=== PATIENT | male | born 1980 | race Caucasian/White ===

== ENCOUNTER 2017-02-12 07:00 | Emergency (ER) | payer OTHER ==
[2017-02-12 07:17] VITALS: BP 145/87; PULSE 72; TEMP 98; BMI 45.8
--- NOTE | 2017-02-12 07:27 | PDOC ---
History of Present Illness - General Chief Complaint: Burn Stated Complaint: LIP BURN History Source: Patient Exam Limitations: No Limitations - History of Present Illness Initial Comments: 02/12/17 07:43 This is a 36 yo M with PMX of GERD and Lap Band surgery, who presets with a lip burn. He tasted hot pasta last night and burned medial aspect of his bottom lip with hot water. He did not burn other areas of mouth. The area of the burn is very small, patient states it was initially slightly edematous but the edema subsided. The burned are formed a thin crust on top, is moderately painful when moving lips, has no surrounding erythema and no drainage. He denies f/c or mouth pain. He denies recent dental infections, dental procedures, frequent infections, immunocompromise, or bleeding d/o. 02/12/17 07:46 Past History - Past Medical History Allergies/Adverse Reactions: Allergies Allergy/AdvReac Type Severity Reaction Status Date / Time No Known Drug Allergies Allergy Verified 02/12/17 07:18 Home Medications: Ambulatory Orders Multivitamin/Iron/Folic Acid [One Daily Multivitamin-Iron Tb] 1 each PO DAILY [place]-3 Fatty Acids [Fish Oil] 300 mg PO DAILY 10/15/14 Omeprazole [Prilosec (RX)] 60 mg PO HS 10/15/14 Garlic [Garlique] 5,000 mcg PO DAILY 05/24/15 Ibuprofen [Motrin -] 400 mg PO TID #21 tablet 06/29/16 Anemia: No Asthma: No Cancer: No Cardiac Disorders: No CVA: No COPD: No CHF: No Dementia: No Diabetes: No GI Disorders: Yes (HEARTBURN) Disorders: No HTN: No Hypercholesterolemia: No Liver Disease: No Seizures: No Thyroid Disease: No - Surgical History Abdominal Surgery: Yes (LAP BAND 2008) Appendectomy: No Cardiac Surgery: No Cholecystectomy: No Lung Surgery: No Neurologic Surgery: No Orthopedic Surgery: No - Immunization History Immunization Up to Date: Yes (flu 2011) - Psycho/Social/Smoking Cessation Hx Anxiety: No Suicidal Ideation: No Smoking Status: No Smoking History: Never smoked Have you smoked in the past 12 months: No Number of Cigarettes Smoked Daily: 0 Information on smoking cessation initiated: No Hx Alcohol Use: No Drug/Substance Use Hx: No Substance Use Type: None Hx Substance Use Treatment: No Review of Systems - Review of Systems Able to Perform ROS?: Yes Comments:: 02/12/17 07:46 Is the patient limited Russian proficient: No Constitutional: No: Chills, Fever HEENTM: Yes: Mouth Pain (bottom lip ). No: Dental Problems, Difficulty Swallowing, Mouth Swelling Respiratory: No: Cough, Shortness of Breath Cardiac (ROS): No: Chest Pain, Lightheadedness ABD/GI: No: Difficulty Swallowing, Nausea, Vomiting : No: Dysuria Musculoskeletal: No: Neck Pain Integumentary: No: Bruising, Lumps, Rash Neurological: No: Headache, Numbness, Paresthesia, Weakness Psychiatric: No: Anxiety, Depression Endocrine: No: Excessive Sweating, Flushing, Change in Weight Hematologic/Lymphatic: No: Anemia, Blood Clots, Easy Bleeding, Easy Bruising All Other Systems: Reviewed and Negative *Physical Exam - Vital Signs Last Vital Signs Temp Pulse Resp BP Pulse Ox 98 F 72 18 145/87 99 02/12/17 07:14 02/12/17 07:14 02/12/17 07:14 02/12/17 07:14 02/12/17 07:14 - Physical Exam General Appearance: Yes: Appropriately Dressed. No: Apparent Distress HEENT: positive: EOMI, HATTIE, Normal Voice, Symmetrical, Lesions (small .5 cm x .5 cm burned are on medial aspect of bottom lip. nonedematous, nonerythematous, small crust on top of lestion, no exudate. first degree ). negative: Pale Conjunctivae, Scleral Icterus (R), Scleral Icterus (L) Neck: positive: Trachea midline, Normal Thyroid, Supple. negative: Tender Respiratory/Chest: positive: Lungs Clear, Normal Breath Sounds Cardiovascular: positive: Regular Rhythm, Regular Rate, S1, S2. negative: JVD Gastrointestinal/Abdominal: positive: Normal Bowel Sounds, Soft. 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 It does not appear infected and does not require PO abx. Patient advised to use topical bacitracin, neosporin or petroleum jelly. 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 Topical Bacitracin ordered for patient. 02/12/17 07:55 *DC/Admit/Observation/Transfer Diagnosis at time of Disposition: First degree burn injury - Discharge Dispostion Disposition: HOME Admit: No - Referrals Referrals: Max Patterson MD [Primary Care Provider] - - Patient Instructions Printed Discharge Instructions: How to Take Care of a Burn Additional Instructions: You have suffered a small first degree burn on your bottom lip. It is not infected and appears to be healing. Apply topical bacitracin once or twice daily to affected area. avoid hot liquids or foods on the area. If are becomes swollen, red, more painful or starts oozing puss, please return to hospital. You are safe to return to work today - Post Discharge Activity Work/School Note: Back to Work
[2017-02-12] MEDS ORDERED: DIPHTH,PERTUSS(ACELL),TET 0.5 ML DISP.SYRIN IM ONE (08:16)
--- NOTE | 2017-02-12 08:16 | PDOC ---
Attending Attestation - Resident Resident Name: Jeannine Ovalle - ED Attending Attestation I have performed the following: I have examined & evaluated the patient, The case was reviewed & discussed with the resident, I agree w/resident's findings & plan, Exceptions are as noted - HPI HPI: 02/12/17 08:10 36y/o healthy male presents with isolated small scald burn with boiling water to his lower lip last night. no airway issues, applied neosporin and presents for evaluation. - Physicial Exam PE: 02/12/17 08:14 VSS airway patent, voice clear isolated dry superficial, round, 5mm scald burn to R lower lip, no drainage or erythema/swelling. no intact blister. sensation intact. - Medical Decision Making 02/12/17 08:15 Patient seen and evaluated with the resident. I agree with the overall evaluation, assessment, and management with the following summary of visit: 36-year-old male presents with isolated, small, superficial scald burn to right lower lip. No airway issues. Reassured Check tetanus status Bacitracin twice daily, understands return criteria
[2017-02-12] MEDS ORDERED: NEOMYCIN/POLYMYXIN/BACITRACIN (TRIPLE ANTIBIOTIC) 28 GM OINTMENT TP SCH (10:00)
== END 2017-02-12 08:15 | disposition home or self-care (01) ==
LOC: JER 07:00
DX: T20.12XA Burn of first degree of lip(s), initial encounter (principal); X12.XXXA Contact with other hot fluids, initial encounter; Y93.G1 Activity, food preparation and clean up; Y92.018 Other place in single-family (private) house as the place of occurrence of the external cause
CPT/HCPCS: 90715; 99281-25

== ENCOUNTER 2017-04-10 08:15 | Day surgery (SDC) | payer OTHER ==
[2017-04-08 13:59] VITALS: BMI 44.3
[2017-04-10] MEDS ORDERED: PROPOFOL 20 ML ONE (09:25)
[2017-04-10] MEDS ORDERED: LIDOCAINE HCL/PF 2% SDV 5ML VIAL ONE (09:25)
[2017-04-10] MEDS ORDERED: RANITIDINE HCL 50 MG/2 ML VIAL ONE ×2 (09:40→09:44)
[2017-04-10] MEDS ORDERED: ONDANSETRON 4 MG/2 ML VIAL ONE ×2 (09:40→09:43)
[2017-04-10] MEDS ORDERED: MIDAZOLAM HCL 2 MG/2 ML SINGLE DOSE VIAL ONE (09:56)
[2017-04-10 10:24] VITALS: TEMP 97.9
[2017-04-10 10:58] VITALS: PULSE 58
[2017-04-10 11:17] VITALS: BP 146/88
== END 2017-04-10 11:17 | disposition home or self-care (01) ==
LOC: JASU-ENDO 08:15
PROVIDERS: ATTEND Internal Medicine Gastroenterology
PROC: 0DB68ZX Excision of Stomach, Via Natural or Artificial Opening Endoscopic, Diagnostic (ICD-10-PCS; 2017-04-10)
PROC: 0DB48ZX Excision of Esophagogastric Junction, Via Natural or Artificial Opening Endoscopic, Diagnostic (ICD-10-PCS; 2017-04-10)
PROC: 0DB98ZX Excision of Duodenum, Via Natural or Artificial Opening Endoscopic, Diagnostic (ICD-10-PCS; principal; 2017-04-10 10:00)
DX: K21.9 Gastro-esophageal reflux disease without esophagitis (principal); K44.9 Diaphragmatic hernia without obstruction or gangrene; Z98.84 Bariatric surgery status
CPT/HCPCS: 74220-TC; 74240-TC

== ENCOUNTER 2017-04-18 05:08 | Day surgery (SDC) | payer OTHER ==
--- NOTE | 2017-04-11 16:28 | PATH ---
Surgical Pathology Report Patient Name: JAKE RONQUILLO [facility]. Rec. #: [id number] /Age/Gender: 1980 (Age: 37) / M Account: [id number] Location: AMBULATORY SURG Taken: 04/10/2017 Received: 04/10/2017 Reported: 04/11/2017 Physicians: Curtis Anders M.D. Specimen(s) Received A: BX ANTRUM B: BX GE JUNCTION Clinical History Pre-gastric sleeve Sliding hiatal hernia, reflux, gastric band, bariatric surgery Final Diagnosis A. STOMACH, ANTRUM, BIOPSY: GASTRIC OXYNTIC MUCOSA WITH MILD TO MODERATE CHRONIC GASTRITIS. IMMUNOSTAIN FOR H. PYLORI IS NEGATIVE FOR ORGANISMS. SEPARATE FRAGMENT OF SQUAMOUS EPITHELIUM WITH REFLUX TYPE CHANGES. B. GE JUNCTION, BIOPSY: SQUAMOCOLUMNAR JUNCTIONAL MUCOSA WITHCHRONIC INFLAMMATION AND REFLUX TYPE CHANGES. NO INTESTINAL METAPLASIA (FLYNN'S ESOPHAGUS) IDENTIFIED. Electronically Signed Sean Prater M.D. Gross Description A. Received in formalin, labeled "biopsy antrum" are 3 longoria, irregular portions of soft tissue ranging from 0.2-0.4 cm in greatest dimension. The specimens are submitted in toto in one cassette. B. Received in formalin, labeled "biopsy GE junction" are 3 longoria, irregular portions of soft tissue ranging from 0.2-0.4 cm in greatest dimension. The specimens are submitted in toto in one cassette. 04/10/201704/10/2017
[2017-04-16 09:22] VITALS: BMI 44.6
[2017-04-18] MEDS ORDERED: MIDAZOLAM HCL 2 MG/2 ML SINGLE DOSE VIAL ONE (07:59)
[2017-04-18] MEDS ORDERED: BUPIVACAINE HCL/PF 0.5% (5MG/ML) 10 ML VIAL ONE (08:00)
[2017-04-18] MEDS ORDERED: PROPOFOL 20 ML ONE ×2 (08:07→10:20)
[2017-04-18] MEDS ORDERED: LIDOCAINE HCL/PF 2% SDV 5ML VIAL ONE (08:07)
[2017-04-18] MEDS ORDERED: DEXAMETHASONE SOD PHOSPHATE 4 MG/1 ML VIAL ONE ×2 (08:07→10:32)
[2017-04-18] MEDS ORDERED: ROCURONIUM BROMIDE 50 MG/5 ML VIAL ONE ×2 (08:08)
[2017-04-18] MEDS ORDERED: ceFAZolin SODIUM 1 GM VIAL ONE (08:29)
[2017-04-18] MEDS ORDERED: ceFAZolin SODIUM 1 GM VIAL IVPB ONE (08:30)
[2017-04-18] MEDS ORDERED: BUPIVACAINE HCL/PF (5 MG/ML) 30 ML VIAL IJ ONE (10:30)
--- NOTE | 2017-04-18 10:50 | HP ---
Satellite [facility] - Chief Complaint Chief Complaint: Dysphagia, nausea, epigastric pain, slipped band History Source: Patient Limitations to Obtaining History: No Limitations - Past Medical History Allergies/Adverse Reactions: Allergies Allergy/AdvReac Type Severity Reaction Status Date / Time No Known Drug Allergies Allergy Verified 04/18/17 07:13 Gastrointestinal: Yes: Other (Morbid obesity) - Current Medications Current Medications: Home Medications Medication Instructions Recorded Multivitamin/Iron/Folic Acid [One 1 each PO DAILY 10/15/14 Daily Multivitamin-Iron Tb] [place]-3 Fatty Acids [Fish Oil] 300 mg PO DAILY 10/15/14 Omeprazole [Prilosec (RX)] 60 mg PO HS 10/15/14 Garlic [Garlique] 5,000 mcg PO DAILY 05/24/15 Albuterol Sulfate [Proventil HFA 1 inh PO PRN PRN 04/08/17 Inhaler -] Ibuprofen [Motrin -] 400 mg PO PRN PRN 04/10/17 Mag Carb/Al Hydrox/Alginic AC 15 - 30 ml PO Q6H PRN #355 oz 04/10/17 [Gaviscon Liquid] Satellite Physical Exam - Physical Examination Vital Signs: Vital Signs Period Temp Pulse Resp BP Sys/Barker Pulse Ox Last 24 Hr 98.0 F 66 20 142/80 99 General Appearance: Well Nourished Lung: Clear to auscultation Heart: Regular rate & rhythm Abdomen: Soft, No tenderness Neurological: Alert, Oriented Satellite Impression/Plan - Impression/Plan Impression: Dysphagia, nausea, vomiting, slipped band Operative Procedure: Robotic removal of gastric band, port and components, EGD Date to be Performed: 04/18/17
--- NOTE | 2017-04-18 10:52 | OP ---
Operative Note - Note: Operative Date: 04/18/17 Pre-Operative Diagnosis: Nausea, vomiting, dysphagia, slipped band Operation: Robotic removal of gastric band, port and components, capsulotomy, upper endoscopy Findings: No leak or obstruction on EGD Post-Operative Diagnosis: Same as Pre-op Surgeon: Zachery Hassan Distribution Lead: Manny Li Anesthesia: General Specimens Removed: Gastric band, port and components Estimated Blood Loss (mls): 30 Operative Report Dictated: Yes
[2017-04-18] MEDS ORDERED: ONDANSETRON 4 MG/2 ML VIAL IVPB PRN (10:54)
[2017-04-18] MEDS ORDERED: HYDROmorphone HCL CARPU-JECT 1 MG/1 ML DISP.SYRIN IVPB PRN (10:54)
[2017-04-18] MEDS ORDERED: SODIUM CHLORIDE 1,000 ML IV SCH (11:00)
[2017-04-18] MEDS ORDERED: PROMETHAZINE HCL 25 MG/1 ML VIAL IVPUSH PRN (11:12)
[2017-04-18] MEDS ORDERED: oxyCODONE HCL 5 MG TABLET PO PRN (11:12)
[2017-04-18] MEDS ORDERED: LACTATED RINGERS SOLUTION 1,000 ML IV SCH (11:15)
[2017-04-18] MEDS ORDERED: FAMOTIDINE 20 MG/50 ML IVPB 50 ML IVPB ONE (11:47)
[2017-04-18 11:58] LABS: MCH 23.7 pg (25.7-33.7); MCHC 31.7 g/dl (32.0-35.9); MEAN CELL VOLUME 74.6 fl (80-96); PLATELET COUNT 236 K/MM3 (134-434); RDW 15.7 % (11.9-15.9); WHITE BLOOD COUNT 9.9 K/mm3 (4.0-10.0)
[2017-04-18] MEDS ORDERED: FAMOTIDINE 20 MG PREMIXED IVPB IVPB ONE (11:59)
--- NOTE | 2017-04-18 12:11 | OP ---
DATE OF OPERATION: 04/18/2017 SURGEON: Zachery Hassan MD GLOVE SEWER: Manny Li MD PREOPERATIVE DIAGNOSES: Dysphagia, nausea, vomiting, epigastric pain, and slipped band. POSTOPERATIVE DIAGNOSES: Dysphagia, nausea, vomiting, epigastric pain, and slipped band. PROCEDURE: Robotic removal of gastric band, port, and components; robotic capsulotomy; and upper endoscopy. SPECIMEN: Gastric band, port, and components. ESTIMATED BLOOD LOSS: 30 mL DRAINS: None. ANESTHESIA: GET. REASON FOR PROCEDURE: This is a 37-year-old gentleman who presented to the office. He had had a gastric band placed approximately 9 years ago. He had dysphagia, nausea, vomiting, and epigastric pain associated with it and recent endoscopy demonstrating slippage of the band and narrow lumen causing dysphagia. Because of this, he was consented for a robotic, possible open removal of gastric band, port, and components and upper endoscopy. The risks and benefits of the procedure were explained. These included bleeding, infection, hernia, PA, DVT, PE, injury to surrounding structures including injury to the esophagus, stomach, colon, liver, spleen, bowel, vessel injury, nerve injury, persistent dysphagia, leak, obstruction, weight regain, and as some of the complications. He understood and signed informed consent. DESCRIPTION OF PROCEDURE: Patient was placed supine on the operating room table. He underwent general endotracheal intubation. A foot board was placed, and the legs were secured. The arms were brought out at 90 degrees and secured with Kerlix dressing. The abdomen was prepped and draped in the usual sterile fashion. A timeout was performed. An incision was made superior and to the left of the umbilicus. A Veress needle was inserted, and there was difficulty attaining pneumoperitoneum. Therefore, an incision was made superior and to the right of the umbilicus. Veress needle was inserted. Pneumoperitoneum established. The Veress needle was removed, and an 8-mm robotic optical trocar was placed under direct visualization with the laparoscope. The previous placement of the Veress needle was inspected. No injury was noted to any surrounding structures. An 8-mm robotic trocar was then placed in this site. An 8-mm robotic trocar was placed in the left subcostal and right subcostal areas. A stab wound was made in the subxiphoid area, and a Ren liver retractor inserted. The post was secured at the bedside. Patient was placed in steep reverse Trendelenburg, and the liver was retracted towards the anterior abdominal wall. This was secured to the post. The robot was brought in over the field and docked. The instruments were inserted. Dissection was performed at the console robotically. Immediately it was noted there was dense adhesive scar tissue near the level of the previously placed band. Very carefully, using the tubing as a guide, the overlying scar tissue was dissected using hook electrocautery. This was performed until the entirety of the band was circumferentially dissected. Once this was performed, the band was removed from its position around the stomach in its entirety. The previous wrap that was placed at the time of the band was also taken down as well. No injury to stomach or surrounding structures was noted at the time. A capsulotomy was then performed robotically as well, being careful to stay superficial to the gastric wall. The capsule was incised, performing a capsulotomy, freeing the stomach and allowing it to release some of its tension from the scar tissue. Again, no injury was noted. Copious irrigation and suction was performed until clear, and again, no evidence of injury was noted. At this time, an upper endoscopy was performed. Irrigation solution was placed around the area of dissection, and all instruments were removed from the patient 's mouth. I performed an upper endoscopy, starting from the level of the esophagus. No injury to the esophagus was noted. The GE junction was identified. The entirety of the stomach and gastric lumen was identified, and no injuries seen. There was no evidence of leak or obstruction on endoscopy or on laparoscopic imaging. At this point, the stomach was suctioned via the endoscope and was removed from the patient. The area of dissection was again inspected, and again, no injury noted. At this point, the tubing of the band was transected, and the band along with its tubing was removed from the abdominal cavity. The liver retractor was then removed under direct visualization. The patient was then placed supine after the instruments were removed from the robot and the robot was undocked from the field. The port was then dissected down to the level of the fascia and completely freed. This was removed, and the tubing of the band was noted to fully match. Hemostasis of all incisions was noted. Next, 3-0 Vicryl was used to close the deep and subcutaneous tissue at the level of the trocar that was superior to the right of the umbilicus where the port was removed, and 4-0 Biosyn was used to close all skin incisions. Sterile dressings were applied. The patient tolerated the procedure well, was transferred to recovery room in stable condition. Wendy [id number] MTDD
[2017-04-18 12:22] LABS: ANION GAP 5 (8-16); CALCIUM 8.3 mg/dL (8.5-10.1); CO2 26 mmol/L (21-32); CREATININE 0.9 mg/dL (0.7-1.3); GLUCOSE,RANDOM 127 mg/dL (74-106)
[2017-04-18 12:23] VITALS: TEMP 98
[2017-04-18] MEDS ORDERED: ONDANSETRON 4 MG/2 ML VIAL ONE (12:33)
[2017-04-18] MEDS ORDERED: ENOXAPARIN NA (PORCINE) 40 MG/0.4 ML DISP.SYRIN SQ ONE (15:00)
[2017-04-18] MEDS ORDERED: oxyCODONE HCL 5 MG TABLET ONE (16:52)
[2017-04-18 18:08] VITALS: BP 145/84; PULSE 85
[2017-04-18] MEDS ORDERED: FAMOTIDINE 20 MG/50 ML IVPB 50 ML IVPB SCH (22:00)
--- NOTE | 2017-04-19 17:14 | PATH ---
Surgical Pathology Report Patient Name: JAKE RONQUILLO Med. Rec. #: [id number] /Age/Gender: 1980 (Age: 37) / M Account: [id number] Location: AMBULATORY SURG Taken: 04/18/2017 Received: 04/18/2017 Reported: 04/19/2017 Physicians: Zachery Hassan M.D. 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 Gross Description Received fresh labeled "gastric band, port and components," is a 4.3 cm in diameter focally disrupted gastric band. Also received within the same container is a 3 cm in diameter x 1.5 cm in depth longoria, circular device, consistent with a port. The port displays a 38 cm in length portion of tubing extending from one aspect. There are 2 additional clear portions of tubing received within the same container measuring 2.1 and 12.0 cm in length. No soft tissue is present. No sections are submitted, gross only. DL/04/18/2017 saudi04/18/2017
== END 2017-04-18 18:08 | disposition home or self-care (01) ==
LOC: JASUSAT 05:08
PROVIDERS: ATTEND Surgery
PROC: 0DN64ZZ Release Stomach, Percutaneous Endoscopic Approach (ICD-10-PCS; 2017-04-18)
PROC: 0DJ08ZZ Inspection of Upper Intestinal Tract, Via Natural or Artificial Opening Endoscopic (ICD-10-PCS; 2017-04-18)
PROC: 0DP64CZ Removal of Extraluminal Device from Stomach, Percutaneous Endoscopic Approach (ICD-10-PCS; principal; 2017-04-18 08:00)
PROC: 8E0W4CZ Robotic Assisted Procedure of Trunk Region, Percutaneous Endoscopic Approach (ICD-10-PCS; 2017-04-18 08:00)
DX: K95.09 Other complications of gastric band procedure (principal); R13.10 Dysphagia, unspecified; R11.2 Nausea with vomiting, unspecified; R10.13 Epigastric pain
CPT/HCPCS: 43235; 43659; 43774; S2900; 36415; 74241-TC; 80048; 85027; 86850; 86900; 86901; 88300-TC; 88305-TC; 88342-TC; 94010; 94760

== ENCOUNTER 2017-07-09 06:10 | Inpatient (IN) | payer OTHER ==
[2017-07-02 12:17] VITALS: BMI 47.4
[2017-07-09] MEDS ORDERED: CITRIC ACID/SODIUM CITRATE 30 ML UNIT-DOSE CUP ONE (07:44)
[2017-07-09] MEDS ORDERED: LIDOCAINE HCL/PF 2% SDV 5ML VIAL ONE (07:57)
[2017-07-09] MEDS ORDERED: MIDAZOLAM HCL 2 MG/2 ML SINGLE DOSE VIAL ONE ×2 (07:58)
[2017-07-09] MEDS ORDERED: SUCCINYLCHOLINE CHLORIDE 200 MG/10 ML VIAL ONE (07:58)
[2017-07-09] MEDS ORDERED: PROPOFOL 20 ML ONE ×4 (07:58→11:00)
[2017-07-09] MEDS ORDERED: ROCURONIUM BROMIDE 50 MG/5 ML VIAL ONE ×2 (07:58→08:59)
[2017-07-09] MEDS ORDERED: SCOPOLAMINE HYDROBROMIDE 1 PATCH PATCH.TD72 ONE (08:14)
--- NOTE | 2017-07-09 08:15 | HP ---
History & Physical Update - History History: No Change - Physical Physical: No Change - Assessment Assessment: No Change - Plan Plan: No Change (Here today for elective sleeve gastrectomy)
[2017-07-09] MEDS ORDERED: ceFAZolin SODIUM 1 GM VIAL ONE (08:46)
[2017-07-09] MEDS ORDERED: DEXAMETHASONE SOD PHOSPHATE 4 MG/1 ML VIAL ONE (08:46)
[2017-07-09] MEDS ORDERED: ceFAZolin SODIUM 1 GM VIAL IVPB ONE (08:58)
[2017-07-09] MEDS ORDERED: GLYCOPYRROLATE 0.2 MG/1 ML VIAL ONE (11:21)
[2017-07-09] MEDS ORDERED: NEOSTIGMINE METHYLSULFATE 0.5 MG/ML - 10 ML MDV ONE (11:21)
[2017-07-09] MEDS ORDERED: BUPIVACAINE HCL/PF 0.5% (5MG/ML) 10 ML VIAL IJ ONE (11:24)
[2017-07-09] MEDS ORDERED: POVIDONE-IODINE OINTMENT 10% - 28.4 GM TUBE ONE (11:34)
[2017-07-09] MEDS ORDERED: POVIDONE-IODINE OINTMENT 10% - 28.4 GM TUBE TP ONE (11:34)
--- NOTE | 2017-07-09 11:35 | HP ---
Admitting History and Physical - Admission History of Present Illness: 37 male with Morbid obesity History Source: Patient Limitations to Obtaining History: No Limitations - Past Medical History Gastrointestinal: Yes: Other (Morbid obesity) - Smoking History Smoking history: Never smoked Have you smoked in the past 12 months: No Aproximately how many cigarettes per day: 0 - Alcohol/Substance Use Hx Alcohol Use: Yes (SOCIAL) Home Medications - Allergies Allergies/Adverse Reactions: Allergies Allergy/AdvReac Type Severity Reaction Status Date / Time No Known Drug Allergies Allergy Verified 07/02/17 12:18 - Home Medications Home Medications: Ambulatory Orders RX: Multivitamin/Iron/Folic Acid [One Daily Multivitamin-Iron Tb] 1 each PO DAILY 10/15/14 RX: [place]-3 Fatty Acids [Fish Oil] 300 mg PO DAILY 10/15/14 RX: Omeprazole [Prilosec (RX)] 60 mg PO HS 10/15/14 RX: Garlic [Garlique] 5,000 mcg PO DAILY 05/24/15 RX: Albuterol Sulfate [Proventil HFA Inhaler -] 1 inh PO PRN PRN 04/08/17 Mag Carb/Al Hydrox/Alginic AC [Gaviscon Liquid] 15 - 30 ml PO Q6H PRN #355 oz RX: Ibuprofen [Motrin -] 400 mg PO PRN PRN 04/10/17 Docusate Sodium [Colace -] 100 mg PO TID #90 capsule 04/18/17 Famotidine [Pepcid] 20 mg PO BID #60 tablet 04/18/17 Famotidine [Pepcid] 20 mg PO BID #60 tablet MDD 2 07/09/17 Fexofenadine/Pseudoephedrine [Olya-D 12 Hour Tablet] 1 each PO PRN PRN Oxycodone HCl/Acetaminophen [Percocet 5-325 mg Tablet] 1 tab PO Q4H PRN #28 tablet MDD 6 07/09/17 Family Disease History - Family Disease History Family History: Unremarkable Review of Systems - Review of Systems Constitutional: denies: Chills, Fever HENT: reports: No Symptoms Neck: reports: No Symptoms Cardiovascular: denies: Chest Pain Respiratory: denies: Cough Gastrointestinal: denies: Abdominal Pain Genitourinary: reports: No Symptoms Neurological: denies: Change in LOC Pain Intensity: 0 Physical Examination Vital Signs: Vital Signs Temperature 97.7 F 07/09/17 06:43 Pulse Rate 74 07/09/17 06:43 Respiratory Rate 20 07/09/17 06:43 Blood Pressure 136/79 07/09/17 06:43 O2 Sat by Pulse Oximetry (%) 100 07/09/17 06:42 Constitutional: Yes: Calm HENT: Yes: WNL Neck: Yes: Supple Cardiovascular: Yes: Regular Rate and Rhythm Respiratory: Yes: CTA Bilaterally Gastrointestinal: Yes: Soft, Abdomen, Obese Extremities: Yes: WNL Neurological: Yes: Alert, Oriented Problem List - Problems (1) Morbid (severe) obesity due to excess calories Code(s): E66.01 - MORBID (SEVERE) OBESITY DUE TO EXCESS CALORIES Assessment/Plan 37 male with morbid obesity For robotic vertical sleeve gastrectomy Risks and benefits explained Understands and agrees
[2017-07-09] MEDS ORDERED: HYDROmorphone HCL CARPU-JECT 1 MG/1 ML DISP.SYRIN IVPB PRN (11:37)
--- NOTE | 2017-07-09 11:37 | OP ---
Operative Note - Note: Operative Date: 07/09/17 Pre-Operative Diagnosis: Morbid obesity Operation: Robotic vertical sleeve gastrectomy, lysis of adhesions, upper endoscopy/EGD Findings: No leak/obstruction Post-Operative Diagnosis: Other (Morbid obesity, abdominal adhesions) Surgeon: Zachery Hassan Medical Record Retrieval Specialist: Kyle Whitfield Anesthesia: General Specimens Removed: Greater curvature of stomach Estimated Blood Loss (mls): 30 Drains & Tubes with Location: 36 Fr Operative Report Dictated: Yes
[2017-07-09] MEDS ORDERED: ALBUTEROL SO4 18 GM HFA INHALER IH PRN ×2 (11:39→14:16)
[2017-07-09] MEDS ORDERED: SODIUM CHLORIDE 1,000 ML IV SCH ×2 (11:45→14:16)
[2017-07-09] MEDS ORDERED: METOCLOPRAMIDE HCL INJECTION 10 MG/2 ML VIAL IVPUSH SCH (11:45)
[2017-07-09] MEDS ORDERED: ONDANSETRON 4 MG/2 ML VIAL IVPUSH SCH (11:45)
[2017-07-09] MEDS ORDERED: ONDANSETRON 4 MG/2 ML VIAL IVPUSH PRN (11:55)
--- NOTE | 2017-07-09 11:56 | SURG ---
Surgery Gum Mixer Note Gum Mixer: Kyle Whitfield PA-C Date of Service: 07/09/17 Diagnosis: Morbid obesity Procedure: Robotic sleeve gastrectomy, lysis of adhesions I was present for the entirety of the operative procedure. For further detail, please refer to operative report. Visit type - Case Type Case Type: Scheduled Admission - New patient This patient is new to me today: Yes Date on this admission: 07/09/17
[2017-07-09] MEDS ORDERED: ACETAMINOPHEN 1000 MG/100 ML VIAL (NON FORMULARY) IVPB SCH (12:00)
[2017-07-09] MEDS ORDERED: ACETAMINOPHEN INJECTION 100 ML IVPB ONE (12:00)
[2017-07-09] MEDS ORDERED: METOCLOPRAMIDE HCL INJECTION 10 MG/2 ML VIAL ONE (12:08)
[2017-07-09 12:23] LABS: MCH 22.8 pg (25.7-33.7); MCHC 31.6 g/dl (32.0-35.9); MEAN PLT VOLUME 7.7 fl (7.5-11.1); PLATELET COUNT 277 K/MM3 (134-434); RDW 16.3 % (11.9-15.9); WHITE BLOOD COUNT 12.4 K/mm3 (4.0-10.0)
[2017-07-09 12:53] LABS: ALBUMIN 3.9 g/dl (3.4-5.0); ALK PHOS 50 U/L (45-117); ANION GAP 8 (8-16); BILIRUBIN,TOTAL 0.3 mg/dL (0.2-1.0); CO2 25 mmol/L (21-32); CREATININE 0.9 mg/dL (0.7-1.3); GLUCOSE,RANDOM 144 mg/dL (74-106); SGOT/AST 42 U/L (15-37); SGPT/ALT 68 U/L (12-78); TOT PROT 7.1 g/dl (6.4-8.2)
[2017-07-09] MEDS: HYDROmorphone HCL CARPU-JECT 1 MG/1 ML DISP.SYRIN IVPUSH PRN ×6 (12:56→14:10)
[2017-07-09] MEDS ORDERED: HYDROmorphone HCL CARPU-JECT 2 MG/1 ML DISP.SYRIN ONE ×2 (12:58→14:06)
[2017-07-09] MEDS ORDERED: HYDROmorphone HCL CARPU-JECT 1 MG/1 ML DISP.SYRIN IVPUSH PRN (14:25)
[2017-07-09] MEDS: HYDROmorphone HCL CARPU-JECT 1 MG/1 ML DISP.SYRIN IVPB PRN ×2 (17:30→22:09)
[2017-07-09] MEDS: METOCLOPRAMIDE HCL INJECTION 10 MG/2 ML VIAL IVPUSH SCH ×2 (17:40→23:29)
[2017-07-09] MEDS: LACTATED RINGERS SOLUTION 1,000 ML IV SCH (18:20)
[2017-07-09] MEDS: ONDANSETRON 4 MG/2 ML VIAL IVPUSH SCH ×3 (18:59→23:29)
[2017-07-09] MEDS: ACETAMINOPHEN 1000 MG/100 ML VIAL (NON FORMULARY) IVPB SCH ×3 (19:11→23:28)
[2017-07-09] MEDS ORDERED: FAMOTIDINE 20 MG/50 ML IVPB 50 ML IVPB SCH (22:00)
[2017-07-09] MEDS ORDERED: ENOXAPARIN NA (PORCINE) 40 MG/0.4 ML DISP.SYRIN SQ SCH (22:00)
[2017-07-09] MEDS: ENOXAPARIN NA (PORCINE) 40 MG/0.4 ML DISP.SYRIN SQ SCH (22:11)
[2017-07-09] MEDS: FAMOTIDINE 20 MG/50 ML IVPB 50 ML IVPB SCH (22:11)
[2017-07-10] MEDS: HYDROmorphone HCL CARPU-JECT 1 MG/1 ML DISP.SYRIN IVPB PRN (02:49)
[2017-07-10] MEDS: ONDANSETRON 4 MG/2 ML VIAL IVPUSH SCH ×4 (03:45→16:25)
[2017-07-10] MEDS: METOCLOPRAMIDE HCL INJECTION 10 MG/2 ML VIAL IVPUSH SCH ×2 (05:15→12:18)
[2017-07-10] MEDS: ACETAMINOPHEN 1000 MG/100 ML VIAL (NON FORMULARY) IVPB SCH (05:15)
[2017-07-10 06:09] LABS: MCH 23.6 pg (25.7-33.7); MCHC 32.9 g/dl (32.0-35.9); MEAN CELL VOLUME 71.9 fl (80-96); MEAN PLT VOLUME 8.1 fl (7.5-11.1); PLATELET COUNT 232 K/MM3 (134-434); RDW 16.2 % (11.9-15.9)
[2017-07-10 06:47] LABS: ALBUMIN 2.9 g/dl (3.4-5.0); ALK PHOS 39 U/L (45-117); ANION GAP 6 (8-16); BILIRUBIN,TOTAL 0.5 mg/dL (0.2-1.0); CALCIUM 7.4 mg/dL (8.5-10.1); CO2 26 mmol/L (21-32); CREATININE 0.7 mg/dL (0.7-1.3); GLUCOSE,RANDOM 96 mg/dL (74-106); SGOT/AST 33 U/L (15-37); SGPT/ALT 57 U/L (12-78); TOT PROT 5.7 g/dl (6.4-8.2)
--- NOTE | 2017-07-10 07:38 | PN ---
Addendum entered and electronically signed by Kyle Whitfield PA 07/10/17 12:58: UGI (unofficial read): no extravasation Bariatric ST1 diet ordered Original Note: Progress Note (short form) - Note Progress Note: POD #1 Alert. No acute events since surgery per RN notes. Patient has ambulated hallways without difficulty. Voiding spontaneously. Remains NPO. Denies n/v/f/c , CP, palpitations or SOB. Last Vital Signs Temp Pulse Resp BP Pulse Ox 99.4 F 108 H 20 139/93 94 L 07/10/17 07:08 07/10/17 07:08 07/10/17 07:08 07/10/17 07:08 07/10/17 00:00 SUSAN ENGLAND 07/10/17 05:50 07/10/17 06:10 Gen: nad Lungs: cta bilat anteriorly Cor: rrr Abd: all surgical ports c/d/i. No hematoma LE: TEDs bilat. No tenderness bilat <Kyle Whitfield - Last Filed: 07/10/17 07:33> - Note Progress Note: POD 1 No pain No nausea Vital Signs Period Temp Pulse Resp BP Sys/Barker Pulse Ox Last 24 Hr 98.4 F-99.4 F 80-108 16-22 134-170/65-97 94-99 Abd soft, dressings intact SUSAN ENGLAND 07/10/17 05:50 07/10/17 06:10 UGI- no leak/obstruction OOB Clears Discharge planning <Zachery Hassan - Last Filed: 07/10/17 13:40> Problem List - Problems (1) Morbid (severe) obesity due to excess calories Assessment/Plan: POD #1 s/p Robotic sleeve gastrectomy f/u UGI --> if negative leak, start bariatric stage 1 diet Cont oob and ambulate GI ppx dc planning Code(s): E66.01 - MORBID (SEVERE) OBESITY DUE TO EXCESS CALORIES <Kyle Whitfield - Last Filed: 07/10/17 07:33> - Problems (1) Morbid (severe) obesity due to excess calories Code(s): E66.01 - MORBID (SEVERE) OBESITY DUE TO EXCESS CALORIES <Zachery Hassan - Last Filed: 07/10/17 13:40>
[2017-07-10] MEDS ORDERED: PT OWN MED DRAWER 7, Y5N ONE (08:49)
[2017-07-10] MEDS: HYDROmorphone HCL CARPU-JECT 1 MG/1 ML DISP.SYRIN IVPUSH PRN ×2 (08:53→12:17)
[2017-07-10] MEDS: ENOXAPARIN NA (PORCINE) 40 MG/0.4 ML DISP.SYRIN SQ SCH (09:00)
[2017-07-10] MEDS: FAMOTIDINE 20 MG/50 ML IVPB 50 ML IVPB SCH (09:01)
[2017-07-10] MEDS: LACTATED RINGERS SOLUTION 1,000 ML IV SCH (12:44)
[2017-07-10] MEDS ORDERED: oxyCODONE HCL 5 MG TABLET PO PRN (13:09)
[2017-07-10] MEDS ORDERED: ACETAMINOPHEN 325 MG TABLET (FP) PO PRN (13:09)
[2017-07-10] MEDS ORDERED: SODIUM CHLORIDE 1,000 ML IV SCH (13:15)
--- NOTE | 2017-07-10 13:24 | PN ---
Progress Note, Physician Chief Complaint: s/p lap robotic gastric sleeve History of Present Illness: post op day one, general anesthesia - Current Medication List Current Medications: Active Medications Acetaminophen (Tylenol -) 325 mg PO Q4H PRN PRN Reason: FEVER OR PAIN Albuterol Sulfate (Ventolin Hfa Inhaler -) 1 puff IH PRN PRN PRN Reason: SHORT OF BREATH/WHEEZING Enoxaparin Sodium (Lovenox -) 40 mg SQ BID [facility] Last Admin: 07/10/17 09:00 Dose: 40 mg Hydromorphone HCl (Dilaudid Injection -) 0.5 mg IVPUSH [id number] PRN PRN Reason: PAIN Stop: 07/12/17 11:56 Last Admin: 07/10/17 12:17 Dose: 0.5 mg Hydromorphone HCl (Dilaudid Injection -) 1 mg IVPB Q3H PRN PRN Reason: PAIN Last Admin: 07/10/17 02:49 Dose: 1 mg Hydromorphone HCl (Dilaudid Injection -) 0.5 mg IVPUSH [id number] PRN PRN Reason: PAIN Stop: 07/10/17 14:26 Lactated Ringer's (Lactated Ringers Solution) 1,000 mls @ 125 mls/hr IV ASDIR [facility] Last Admin: 07/10/17 12:44 Dose: Not Given Famotidine/Sodium Chloride (Pepcid 20 Mg Premixed Ivpb -) 50 mls @ 100 mls/hr IVPB BID [facility] Last Admin: 07/10/17 09:01 Dose: 100 mls/hr Sodium Chloride (Normal Saline -) 1,000 mls @ 75 mls/hr IV ASDIR [facility] Metoclopramide HCl (Reglan Injection -) 10 mg IVPUSH Q6H [facility] Last Admin: 07/10/17 12:18 Dose: 10 mg Ondansetron HCl (Zofran Injection) 4 mg IVPUSH Q4H [facility] Last Admin: 07/10/17 12:18 Dose: 4 mg Oxycodone HCl (Roxicodone -) 5 mg PO Q4H PRN PRN Reason: PAIN - Objective Vital Signs: Vital Signs Temperature 98.6 F 07/10/17 10:00 Pulse Rate 89 07/10/17 10:00 Respiratory Rate 19 07/10/17 10:00 Blood Pressure 148/83 07/10/17 10:00 O2 Sat by Pulse Oximetry (%) 94 L 07/10/17 09:00 Constitutional: Yes: Well Nourished Cardiovascular: Yes: WNL Respiratory: Yes: WNL Gastrointestinal: Yes: WNL Labs: CBC, BMP 07/10/17 05:50 07/10/17 06:10 Assessment/Plan no adverse reaction from anesthetic, no nausea or vomiting, no throat pain, dept of anesthesia will sign off care at this time
[2017-07-10 13:40] VITALS: PULSE 86; TEMP 99.4
[2017-07-10 13:49] VITALS: BP 165/93
--- NOTE | 2017-07-10 17:33 | PATH ---
Surgical Pathology Report Patient Name: JAKE RONQUILLO [facility]. Rec. #: [id number] /Age/Gender: 1980 (Age: 37) / M Account: [id number] Location: [facility] Taken: 07/09/2017 Received: 07/09/2017 Reported: 07/10/2017 Physicians: Zachery Hassan M.D. Specimen(s) Received A: SCAR REVISION B: GREATER CURVATURE OF STOMACH Clinical History Morbid obesity Final Diagnosis A. SKIN, SCAR, REVISION: SKIN WITH DERMAL FIBROSIS CONSISTENT WITH SCAR AND FOCAL CHRONIC INFLAMMATION WITH GIANT CELL REACTION. B. STOMACH, GREATER CURVATURE, ROBOTIC LAPAROSCOPIC VERTICAL SLEEVE GASTRECTOMY: PORTION OF STOMACH WITH MILD CHRONIC GASTRITIS. IMMUNOHISTOCHEMICAL STAIN FOR H. PYLORI IS NEGATIVE. Electronically Signed Tiffany Gudino M.D. Gross Description A. Received in formalin labeled "scar revision," are 2 longoria, elliptical, unoriented portions of skin measuring 1.0 x 0.4 cm and 2.8 x 0.7 cm. The epidermal surfaces display well healed scars. Egg Trayer sections are submitted in one cassette. B. Received in formalin, labeled "greater curvature of stomach," is a 132 gram, 20.0 x 4.0 x 3.5 cm. previously opened portion of stomach with a stapled margin of resection. The serosa is longoria-duong and shaggy with minimal attached fat. The mucosa is longoria-pink with normal folds. No mucosal masses are identified. Egg Trayer sections are submitted in one cassette. /07/09/2017 [place]udi07/09/2017
--- NOTE | 2017-07-10 18:57 | DS ---
Physical Examination Vital Signs: Vital Signs Temperature 99.4 F 07/10/17 14:00 Pulse Rate 86 07/10/17 14:00 Respiratory Rate 19 07/10/17 14:00 Blood Pressure 165/93 07/10/17 14:00 O2 Sat by Pulse Oximetry (%) 94 L 07/10/17 09:00 Constitutional: Yes: Calm HENT: Yes: WNL Neck: Yes: Supple Cardiovascular: Yes: Regular Rate and Rhythm Respiratory: Yes: Regular Gastrointestinal: Yes: Soft Wound/Incision: Yes: Dressing Dry and Intact Neurological: Yes: Alert, Oriented Labs: CBC, BMP 07/10/17 05:50 07/10/17 06:10 Discharge Summary Reason For Visit: LAP GASTICE SLEEVE/BX LIVER/EGD Procedures: Principal: Robotic vetical sleeve gastrectomy, robotic lysis of adhesions, EGD, scar revision x 3 Condition: Stable - Instructions Diet, Activity, Other Instructions: [address] [place] [address] Zachery Hassan M.D. [address] [place] [address], [address] [facility] [place] [address] Robotic, Bariatric and General Surgery Postoperative Instructions for Bariatric Surgery Activity: Resume normal everyday activity as tolerated. You may walk and climb stairs without any limitation. We encourage you to walk as often as you can Do not lift anything more than 10 pounds for 8 weeks. At that time, you can return to full activity, including the gym, without limitation. Do not drive a motor vehicle while taking prescribes narcotic pain medication. Wound Care: If you have a bandage in place, leave it on for 3 days. At that time you may remove the outer bandage. If there are strips of tape on the skin after removing the outer bandage, leave them in place. They will fall off by themselves. Do not remove them. If there is clear glue on the skin after removing the outer bandage, leave it in place. Do not pick at it or peel it off. You may shower after taking the outer bandage off, 3 days after your surgery. If incisions become red, warm or open, please call the office. Diet: Continue a sugar-free, non-carbonated Clear liquid diet three times a day for the first week-Stage I diet. In addition, you should drink 8 ounces of water every hour. When drinking, sips should be slow and steady, not large and quick. After the first week, call the office to be advanced to the next dietary stage. Do not advance stages until instructed. Your diet will be advanced over the phone each week. Medications/Pain Management: You may resume previous medications unless told otherwise. The pills may be swallowed whole or broken if scored. You may take the prescribed narcotic pain medication as needed. If the narcotic medication is not needed for pain control, you may take Tylenol. Avoid all other pain medications including Advil, Ibuprofen, Motrin, Aspirin, Naprosyn, Aleve, Celebrex. You will receive Pepcid. Please take this twice a day as prescribed. Dizziness,Headaches/Gas Pain: Make sure you are getting enough fluids daily. Patients on diuretics or water pills may need medication adjusted. Some fluids such as broth or Gatorade may help. Gas pains are common in the first few weeks after surgery. At times they can be worse than surgical pain. Walking can help. You can also use Mylanta, Maalox, or Gas-X. Vomiting/Nausea: This may occur if you eat too fast, don't chew, or eat too much. Go back to fluids. If the vomiting or nausea persists, call the office. Constipation/Diarrhea: You may experience a change in bowel habits. Many things affect this, including a decrease in food intake, not enough fluid and taking pain medication. Some people experience diarrhea after the barium swallow in x-ray. If either persist, call the office. Follow up: Call the office at [phone] for an appointment 2 weeks after your surgical procedure. Disposition: HOME - Home Medications Comprehensive Discharge Medication List: Ambulatory Orders Multivitamin/Iron/Folic Acid [One Daily Multivitamin-Iron Tb] 1 each PO DAILY Bradley-3 Fatty Acids [Fish Oil] 300 mg PO DAILY 10/15/14 Omeprazole [Prilosec (RX)] 60 mg PO HS 10/15/14 Garlic [Garlique] 5,000 mcg PO DAILY 05/24/15 Albuterol Sulfate [Proventil HFA Inhaler -] 1 inh PO PRN PRN 04/08/17 Ibuprofen [Motrin -] 400 mg PO PRN PRN 04/10/17 Mag Carb/Al Hydrox/Alginic AC [Gaviscon Liquid] 15 - 30 ml PO Q6H PRN #355 oz Docusate Sodium [Colace -] 100 mg PO TID #90 capsule 04/18/17 Famotidine [Pepcid] 20 mg PO BID #60 tablet 04/18/17 Famotidine [Pepcid] 20 mg PO BID #60 tablet MDD 2 07/09/17 Fexofenadine/Pseudoephedrine [Olya-D 12 Hour Tablet] 1 each PO PRN PRN Oxycodone HCl/Acetaminophen [Percocet 5-325 mg Tablet] 1 tab PO Q4H PRN #28 tablet MDD 6 07/09/17
== END 2017-07-10 16:36 | disposition home or self-care (01) | DRG 621 ==
LOC: JSAMEDAYSX 06:36 → J2W 15:40
PROVIDERS: ADMIT Surgery; ATTEND Surgery
PROC: 0DNW4ZZ Release Peritoneum, Percutaneous Endoscopic Approach (ICD-10-PCS; 2017-07-09)
PROC: 8E0W8CZ Robotic Assisted Procedure of Trunk Region, Via Natural or Artificial Opening Endoscopic (ICD-10-PCS; 2017-07-09)
PROC: 0DB64Z3 Excision of Stomach, Percutaneous Endoscopic Approach, Vertical (ICD-10-PCS; principal; 2017-07-09 08:00)
DX: E66.01 Morbid (severe) obesity due to excess calories (principal); Z68.42 Body mass index [BMI] 45.0-49.9, adult; K21.9 Gastro-esophageal reflux disease without esophagitis; K66.0 Peritoneal adhesions (postprocedural) (postinfection)
CPT/HCPCS: 36415; 74241-TC; 80053; 85027; 88304-TC; 88305-TC; 94010; 94760

== ENCOUNTER 2019-03-05 04:43 | Day surgery (SDC) | payer OTHER ==
[2019-03-03 16:42] VITALS: BMI 40.7
[~2019-03-05 04:43] MED LIST: BUPIVACAINE HCL/PF (5 MG/ML) 30 ML VIAL IJ ONE; LIDOCAINE HCL 1%, 10 MG/ML (20ML VIAL) NR ONE
[2019-03-05] MEDS ORDERED: DESFLURANE GAS 240 ML BOTTLE IH ONE (07:43)
[2019-03-05] MEDS ORDERED: PROPOFOL 20 ML ONE (07:50)
[2019-03-05] MEDS ORDERED: MIDAZOLAM HCL 2 MG/2 ML SINGLE DOSE VIAL ONE ×2 (07:51→08:54)
[2019-03-05] MEDS ORDERED: SUCCINYLCHOLINE CHLORIDE 200 MG/10 ML SYRINGE ONE (07:51)
[2019-03-05] MEDS ORDERED: LIDOCAINE HCL/PF 2% SDV 5ML VIAL ONE (07:51)
[2019-03-05] MEDS ORDERED: BUPIVACAINE HCL/PF 0.5% (5MG/ML) 10 ML VIAL ONE (08:17)
[2019-03-05] MEDS ORDERED: LIDOCAINE HCL 1%, 10 MG/ML (20ML VIAL) ONE (08:17)
[2019-03-05] MEDS ORDERED: ceFAZolin SODIUM 1 GM VIAL ONE (09:04)
[2019-03-05] MEDS ORDERED: DEXAMETHASONE SOD PHOSPHATE 4 MG/1 ML VIAL ONE (09:20)
[2019-03-05] MEDS ORDERED: BUPIVACAINE HCL/PF (5 MG/ML) 30 ML VIAL IJ ONE ×2 (09:28)
[2019-03-05] MEDS ORDERED: LIDOCAINE HCL 1%, 10 MG/ML (20ML VIAL) NR ONE ×2 (09:28)
--- NOTE | 2019-03-05 09:42 | OP ---
Operative Note - Note: Operative Date: 03/05/19 Pre-Operative Diagnosis: left wrist mass Operation: excision mass left wrist Post-Operative Diagnosis: Same as Pre-op Surgeon: Donnell Graham Anesthesiologist/[employer] MACHINE OPERATOR: Marcia Subramanian Anesthesia: Local, MAC Specimens Removed: mass left wrist Estimated Blood Loss (mls): 0 Drains, Volume Out (mls): 0 Blood Volume Replaced (mls): 0 Fluid Volume Replaced (mls): 500 Operative Report Dictated: Yes
--- NOTE | 2019-03-05 09:46 | HP ---
Satellite [facility] - Chief Complaint Chief Complaint: left wrist pain, mass History of Present Illness: left wrist pain, mass History Source: Patient Limitations to Obtaining History: No Limitations - Past Medical History Allergies/Adverse Reactions: Allergies Allergy/AdvReac Type Severity Reaction Status Date / Time No Known Drug Allergies Allergy Verified 03/03/19 16:26 Gastrointestinal: Yes: Other (Morbid obesity) - Current Medications Current Medications: Home Medications Medication Instructions Recorded Multivitamin/Iron/Folic Acid [One 1 each PO DAILY 10/15/14 Daily Multivitamin-Iron Tb] [place]-3 Fatty Acids [Fish Oil] 300 mg PO DAILY 10/15/14 Albuterol Sulfate [Proventil HFA 1 inh PO PRN PRN 04/08/17 Inhaler -] Ibuprofen [Motrin -] 400 mg PO PRN PRN 04/10/17 Omeprazole 20 mg PO DAILY 09/15/17 Hydrocodone/Acetaminophen 1 - 2 tab PO TID PRN #20 tablet 03/05/19 [Hydrocodone-Acetamin 5-325 mg] MDD 6 Liraglutide [Saxenda] 3 mg SQ DAILY 03/05/19 Satellite Physical Exam - Physical Examination Vital Signs: Vital Signs Period Temp Pulse Resp BP Sys/Barker Pulse Ox Last 24 Hr 97.6 F 67 16 130/80 100 General Appearance: Well Nourished ENT: Clear Lung: Clear to auscultation Heart: Regular rate & rhythm Breasts: Soft Abdomen: Soft Extremities: No edema Satellite Impression/Plan - Impression/Plan Impression: left wrist pain, mass Operative Procedure: excision mass left wrist Date to be Performed: 03/05/19
[2019-03-05 09:51] VITALS: TEMP 97.4
[2019-03-05] MEDS ORDERED: oxyCODONE HCL 5 MG TABLET PO PRN ×2 (10:06)
[2019-03-05] MEDS ORDERED: ONDANSETRON 4 MG/2 ML VIAL IVPUSH PRN (10:06)
[2019-03-05] MEDS ORDERED: LACTATED RINGERS SOLUTION 1,000 ML IV SCH (10:15)
[2019-03-05 11:58] VITALS: BP 133/63; PULSE 77
--- NOTE | 2019-03-05 13:34 | OP ---
DATE OF OPERATION: 03/05/2019 PREOPERATIVE DIAGNOSIS: Left wrist mass. POSTOPERATIVE DIAGNOSIS: Left wrist mass, likely ganglion cyst. SURGERY: Excision of mass, left wrist. SURGEON: Donnell Baca MD ASSISTANTS: None. ANESTHESIOLOGIST: JENNIFER Sims ANESTHESIA: MAC anesthesia. Local injection of 10 mL 0.5% Marcaine and 1% lidocaine mix. DRAINS: None. COMPLICATIONS: None. SPECIMEN: Mass, left wrist. BLOOD LOSS: None. BLOOD GIVEN: None. FLUID REPLACEMENT: 500 mL. This patient is a 38-year-old male with the preoperative diagnosis of a very painful mass around his left wrist/left basal joint. After understanding the potential risks, complications, alternatives, and benefits of surgery versus nonsurgical treatment, the patient elected to undergo this procedure. He understands that there is a chance of recurrence even with surgical excision. The patient was brought to the operating room. Peripheral IV placed and IV sedation given. Two grams of IV Ancef were given. MAC anesthesia was induced. His left upper extremity was prepped and draped in sterile fashion, elevated, exsanguinated with an Esmarch bandage. The tourniquet inflated to 250 mmHg. The entire case was done under 3.8 loupe magnification. An incision was marked out over the mass with a marking pen. Next, 10 mL of 0.5% Marcaine and 1% lidocaine mix were injected in and around the surgical incision. The incision was made with a number-15 scalpel blade. Subcutaneous hemostasis achieved with the bipolar cautery. Dissection done through the superficial tissue. Great care was taken to preserve all crossing neurovascular structures. Small curved iris scissors were utilized as well as cricket self-retaining retractor to retract the superficial tissues. This revealed a circular, very hard, abnormal mass. I was able to dissect around it with the curved iris scissors. At one point, it popped, and classic [id number] fluid came out, further confirming the diagnosis. I was able to identify the mass which was perhaps 5 mm x 5 mm, spherical with a stalk going down to the basal joint. It was found, followed, decapitated at its base, and the base was cauterized. The specimen was passed off the field. The area was copiously irrigated and washed out. I did not see or feel any other abnormal tissue at that point. Closure was done with 4-0 undyed Vicryl in the dermal layer, and final skin reapproximation was done with a running subcuticular 4-0 Biosyn stitch. The area was then washed and dried and covered with Steri-Strips, 4-x-4 gauze, Webril, and Coban. The tourniquet was taken down after total tourniquet time of about 18 minutes. There were no complications during the case. The patient tolerated the procedure well and was brought to the ambulatory recovery room in stable condition. DONNELL BACA M.D. [id number]
--- NOTE | 2019-03-06 18:38 | PATH ---
Surgical Pathology Report Patient Name: JAKE RONQUILLO [facility]. Rec. #: [id number] /Age/Gender: 1980 (Age: 38) / M Account: [id number] Location: [facility] SURGICAL Taken: 03/05/2019 Received: 03/05/2019 Reported: 03/06/2019 Physicians: Donnell Graham M.D. Specimen(s) Received MASS OF LEFT WRIST Clinical History Mass left wrist Final Diagnosis LEFT WRIST MASS, EXCISION: CONSISTENT WITH GANGLION CYST. Electronically Signed Napoleon Gibson M.D. Gross Description Received in formalin labeled "mass left wrist," is a 1.5 x 1.0 x 0.2 cm aggregate of 2 longoria-yellow portions of soft tissue. The specimens are submitted in toto in one cassette. /03/05/2019 [facility]03/05/2019
== END 2019-03-05 11:30 | disposition home or self-care (01) ==
LOC: JASU-SURG 04:43
PROVIDERS: ATTEND Orthopaedic Surgery
PROC: 0LB60ZZ Excision of Left Lower Arm and Wrist Tendon, Open Approach (ICD-10-PCS; principal; 2019-03-05 09:00)
DX: M67.432 Ganglion, left wrist (principal)
CPT/HCPCS: 88304-TC

== ENCOUNTER 2020-06-20 05:13 | Day surgery (SDC) | payer OTHER ==
[2020-06-20 08:37] VITALS: BMI 44.0
[2020-06-20 11:32] VITALS: TEMP 98
[2020-06-20 12:55] VITALS: BP 118/63; PULSE 63
--- NOTE | 2020-06-21 17:28 | PATH ---
Surgical Pathology Report Patient Name: JAKE RONQUILLO [facility]. Rec. #: [id number] /Age/Gender: 1980 (Age: 40) / M Account: [id number] Location: [facility]-ENDOSCOPY Taken: 06/20/2020 Received: 06/20/2020 Reported: 06/21/2020 Physicians: Curtis Anders M.D. Specimen(s) Received A: SECOND PORTION OF DUODENUM AND DUODENAL BULB B: ANTRUM C: GE-JUNCTION D: MID ESOPHAGUS E: CECAL POLYP Clinical History Acid reflux, occult blood in stool, history of colon polyp Postoperative diagnosis: Hiatal hernia, GERD, gastric sleeve, bariatric surgery, colon polyp, diverticulosis Final Diagnosis A. SECOND PORTION OF DUODENUM AND DUODENAL BULB, BIOPSY: DUODENAL MUCOSA WITH NO SIGNIFICANT PATHOLOGIC CHANGE. NO HISTOLOGIC EVIDENCE OF INTRAEPITHELIAL LYMPHOCYTOSIS. B. ANTRUM, BIOPSY: GASTRIC MUCOSA WITH CHRONIC GASTRITIS. IMMUNOSTAIN FOR H. PYLORI IS NEGATIVE. NEGATIVE FOR INTESTINAL METAPLASIA. C. GE JUNCTION, BIOPSY: SQUAMOUS MUCOSA WITH MILD REFLUX ESOPHAGITIS. D. MID ESOPHAGUS, BIOPSY: SQUAMOUS MUCOSA WITH NO SIGNIFICANT PATHOLOGIC CHANGE. NO HISTOLOGIC EVIDENCE OF EOSINOPHILIC ESOPHAGITIS. E. CECAL POLYP, BIOPSY: POLYPOID COLONIC MUCOSA WITH REACTIVE LYMPHOID AGGREGATE IN LAMINA PROPRIA. Electronically Signed Napoleon Gibson M.D. Gross Description A. Received in formalin, labeled "biopsy second portion of duodenum and duodenal bulb" are 2 longoria, irregular portions of soft tissue measuring 0.4 and 0.5 cm. in greatest dimension. The specimens are submitted in toto in one cassette. B. Received in formalin, labeled "biopsy antrum" are 2 longoria, irregular portions of soft tissue measuring 0.2 and 0.4 cm. in greatest dimension. The specimens are submitted in toto in one cassette. C. Received in formalin, labeled "biopsy GE junction" is a longoria, irregular portion of soft tissue measuring 0.3 cm. in greatest dimension. The specimen is submitted in toto in one cassette. D. Received in formalin, labeled "biopsy midesophagus" are 3 longoria, irregular portions of soft tissue ranging from 0.2-0.5 cm. in greatest dimension. The specimens are submitted in toto in one cassette. E. Received in formalin, labeled "biopsy cecal polyp" are 5 longoria, irregular portions of soft tissue ranging from 0.1-0.4 cm. in greatest dimension. The specimens are submitted in toto in one cassette. 06/20/2020 [facility]06/20/2020
== END 2020-06-20 13:02 | disposition home or self-care (01) ==
LOC: JASU-ENDO 05:13
PROVIDERS: ATTEND Internal Medicine Gastroenterology
PROC: 0DB68ZX Excision of Stomach, Via Natural or Artificial Opening Endoscopic, Diagnostic (ICD-10-PCS; 2020-06-20)
PROC: 0DB28ZX Excision of Middle Esophagus, Via Natural or Artificial Opening Endoscopic, Diagnostic (ICD-10-PCS; 2020-06-20)
PROC: 0DBH8ZX Excision of Cecum, Via Natural or Artificial Opening Endoscopic, Diagnostic (ICD-10-PCS; 2020-06-20)
PROC: 0DB38ZX Excision of Lower Esophagus, Via Natural or Artificial Opening Endoscopic, Diagnostic (ICD-10-PCS; principal; 2020-06-20 09:30)
DX: Z12.11 Encounter for screening for malignant neoplasm of colon (principal); Z86.010 Personal history of colon polyps; K92.1 Melena; D12.0 Benign neoplasm of cecum; K57.30 Diverticulosis of large intestine without perforation or abscess without bleeding; K64.5 Perianal venous thrombosis; K21.9 Gastro-esophageal reflux disease without esophagitis; K44.9 Diaphragmatic hernia without obstruction or gangrene; Z98.84 Bariatric surgery status
CPT/HCPCS: 88305-TC; 88342-TC

== ENCOUNTER 2021-04-07 04:13 | Day surgery (SDC) | payer OTHER ==
[2021-04-05 09:24] VITALS: BMI 45.1
[2021-04-07] MEDS ORDERED: BUPIVACAINE HCL/PF 0.75% 10 ML VIAL ONE (07:14)
[2021-04-07] MEDS ORDERED: LIDOCAINE HCL/PF 1% SDV 5ML VIAL ONE (07:17)
[2021-04-07] MEDS ORDERED: IOHEXOL 180 MG/1 ML ML IJ ONE ×3 (08:43)
[2021-04-07] MEDS ORDERED: LIDOCAINE 1% P/F 10 MG/ML VIAL INF ONE ×2 (08:43)
[2021-04-07] MEDS ORDERED: BUPIVACAINE HCL/PF 0.75% 10 ML VIAL NR ONE ×2 (08:43)
[2021-04-07 10:08] VITALS: BP 139/85; PULSE 71; TEMP 98.3
== END 2021-04-07 09:10 | disposition home or self-care (01) ==
LOC: JASU-SURG 04:13
PROVIDERS: ATTEND Pain Medicine Pain Medicine
PROC: 3E0T33Z Introduction of Anti-inflammatory into Peripheral Nerves and Plexi, Percutaneous Approach (ICD-10-PCS; 2021-04-07)
PROC: 3E0T3BZ Introduction of Anesthetic Agent into Peripheral Nerves and Plexi, Percutaneous Approach (ICD-10-PCS; principal; 2021-04-07 08:00)
DX: M47.816 Spondylosis without myelopathy or radiculopathy, lumbar region (principal)
CPT/HCPCS: 76000-TC-FY

== ENCOUNTER 2021-09-12 04:29 | Day surgery (SDC) | payer OTHER ==
[2021-09-07 09:42] VITALS: BMI 45.1
[~2021-09-12 04:29] MED LIST changes: -BUPIVACAINE HCL/PF (5 MG/ML) 30 ML VIAL IJ ONE; +IOHEXOL 180 MG/1 ML ML IJ ONE; +LIDOCAINE HCL 1% PRESERVATIVE FREE - 30ML VIAL IJ ONE; -LIDOCAINE HCL 1%, 10 MG/ML (20ML VIAL) NR ONE
[2021-09-12] MEDS ORDERED: DEXAMETHASONE SOD PHOSPHATE 10 MG/1 ML VIAL ONE (07:25)
[2021-09-12] MEDS ORDERED: LIDOCAINE HCL/PF 1% SDV 5ML VIAL ONE (07:25)
[2021-09-12] MEDS ORDERED: LIDOCAINE HCL 1% PRESERVATIVE FREE - 30ML VIAL IJ ONE (11:39)
[2021-09-12] MEDS ORDERED: DEXAMETHASONE SOD PHOSPHATE 10 MG/1 ML VIAL IVPUSH ONE (11:40)
[2021-09-12 12:40] VITALS: TEMP 97.3
[2021-09-12 12:48] VITALS: BP 140/80; PULSE 70
== END 2021-09-12 12:10 | disposition home or self-care (01) ==
LOC: JASU-SURG 04:29
PROVIDERS: ATTEND Pain Medicine Pain Medicine
PROC: 3E0R33Z Introduction of Anti-inflammatory into Spinal Canal, Percutaneous Approach (ICD-10-PCS; 2021-09-12)
PROC: 3E0R3BZ Introduction of Anesthetic Agent into Spinal Canal, Percutaneous Approach (ICD-10-PCS; principal; 2021-09-12 10:30)
DX: M48.061 Spinal stenosis, lumbar region without neurogenic claudication (principal); M54.16 Radiculopathy, lumbar region
CPT/HCPCS: 76000-TC-FY; J1100

== ENCOUNTER 2021-10-31 04:05 | Day surgery (SDC) | payer OTHER ==
[2021-10-25 13:21] VITALS: BMI 44.9
[2021-10-31] MEDS ORDERED: BUPIVACAINE HCL/PF 0.75% 10 ML VIAL ONE (07:12)
[2021-10-31] MEDS ORDERED: LIDOCAINE HCL/PF 1% SDV 5ML VIAL ONE (07:12)
[2021-10-31] MEDS ORDERED: DEXAMETHASONE SOD PHOSPHATE 10 MG/1 ML VIAL ONE (07:13)
[2021-10-31] MEDS ORDERED: BUPIVACAINE HCL/PF 0.5% (5MG/ML) 10 ML VIAL ONE (07:13)
[2021-10-31] MEDS ORDERED: BUPIVACAINE HCL/PF 0.75% 10 ML VIAL NR ONE (09:58)
[2021-10-31] MEDS ORDERED: IOHEXOL 180 MG/1 ML ML IJ ONE (09:58)
[2021-10-31] MEDS ORDERED: LIDOCAINE HCL 1% PRESERVATIVE FREE - 30ML VIAL IJ ONE (09:58)
[2021-10-31 10:33] VITALS: BP 137/73; PULSE 71; TEMP 98.7
== END 2021-10-31 10:30 | disposition home or self-care (01) ==
LOC: JASU-SURG 04:05
PROVIDERS: ATTEND Pain Medicine Pain Medicine
PROC: BR16YZZ Fluoroscopy of Lumbar Facet Joint(s) using Other Contrast (ICD-10-PCS; 2021-10-31)
PROC: 3E0T3BZ Introduction of Anesthetic Agent into Peripheral Nerves and Plexi, Percutaneous Approach (ICD-10-PCS; principal; 2021-10-31 10:30)
DX: M47.816 Spondylosis without myelopathy or radiculopathy, lumbar region (principal)
CPT/HCPCS: 76000-TC-FY; J1100

== ENCOUNTER 2021-11-10 05:01 | Day surgery (SDC) | payer OTHER ==
[2021-11-06 15:29] VITALS: BMI 46.0
[2021-11-10] MEDS ORDERED: LIDOCAINE VISCOUS 2% ORAL/TOP 15 ML UNIT-DOSE CUP ONE (09:25)
[2021-11-10 10:10] VITALS: TEMP 97.9
[2021-11-10 11:34] VITALS: BP 133/96; PULSE 76
== END 2021-11-10 11:32 | disposition home or self-care (01) ==
LOC: JASU-ENDO 05:01
PROVIDERS: ATTEND Internal Medicine Gastroenterology
PROC: 0DB68ZX Excision of Stomach, Via Natural or Artificial Opening Endoscopic, Diagnostic (ICD-10-PCS; 2021-11-10)
PROC: 0DB48ZX Excision of Esophagogastric Junction, Via Natural or Artificial Opening Endoscopic, Diagnostic (ICD-10-PCS; 2021-11-10)
PROC: 0DB98ZX Excision of Duodenum, Via Natural or Artificial Opening Endoscopic, Diagnostic (ICD-10-PCS; principal; 2021-11-10 10:00)
DX: K21.9 Gastro-esophageal reflux disease without esophagitis (principal); K44.9 Diaphragmatic hernia without obstruction or gangrene; K29.40 Chronic atrophic gastritis without bleeding; Z98.84 Bariatric surgery status; E66.01 Morbid (severe) obesity due to excess calories; J45.909 Unspecified asthma, uncomplicated
CPT/HCPCS: 88305-TC; 88342-TC

== ENCOUNTER 2022-01-09 17:50 | Emergency (ER) | payer OTHER ==
[2022-01-09 18:22] VITALS: BMI 48.2
[2022-01-09] MEDS ORDERED: ALBUTEROL SO4 2.5/IPRATROPIUM 0.5 INH SOL 3 ML VIAL.NEB. NEB ONE (19:31)
[2022-01-09] MEDS ORDERED: BEBTELOVIMAB (EUA) 175 MG/2 ML VIAL IVPUSH ONE (19:34)
[2022-01-09 22:49] VITALS: BP 134/77; PULSE 75; TEMP 98.9
== END 2022-01-09 22:50 | disposition home or self-care (01) ==
LOC: JCOVINFU 17:50 → JER 17:50 → JCOVINFU 22:50
PROC: 3E033GC Introduction of Other Therapeutic Substance into Peripheral Vein, Percutaneous Approach (ICD-10-PCS; principal; 2022-01-09)
PROC: 3E0F7GC Introduction of Other Therapeutic Substance into Respiratory Tract, Via Natural or Artificial Opening (ICD-10-PCS; 2022-01-09)
DX: U07.1 COVID-19 (principal)
CPT/HCPCS: 99284-25; M0222; Q0222

== ENCOUNTER 2022-02-13 04:26 | Day surgery (SDC) | payer OTHER ==
[2022-02-09 10:19] VITALS: BMI 46.2
[2022-02-13] MEDS ORDERED: LIDOCAINE HCL/PF 1% SDV 5ML VIAL ONE (07:20)
[2022-02-13] MEDS ORDERED: DEXAMETHASONE SOD PHOSPHATE 10 MG/1 ML VIAL ONE (07:21)
[2022-02-13 10:22] VITALS: PULSE 77
[2022-02-13] MEDS ORDERED: IOHEXOL 180 MG/1 ML ML IJ ONE (10:51)
[2022-02-13] MEDS ORDERED: LIDOCAINE HCL 1%, 10 MG/ML (50 mL VIAL) NR ONE (10:51)
[2022-02-13] MEDS ORDERED: DEXAMETHASONE SOD PHOSPHATE 10 MG/1 ML VIAL IVPUSH ONE (10:52)
[2022-02-13 12:04] VITALS: BP 142/87; TEMP 97.4
== END 2022-02-13 11:15 | disposition home or self-care (01) ==
LOC: JASU-SURG 04:26
PROVIDERS: ATTEND Pain Medicine Pain Medicine
PROC: 3E0R33Z Introduction of Anti-inflammatory into Spinal Canal, Percutaneous Approach (ICD-10-PCS; 2022-02-13)
PROC: B01BYZZ Fluoroscopy of Spinal Cord using Other Contrast (ICD-10-PCS; 2022-02-13)
PROC: 3E0R3BZ Introduction of Anesthetic Agent into Spinal Canal, Percutaneous Approach (ICD-10-PCS; principal; 2022-02-13 16:30)
DX: M54.16 Radiculopathy, lumbar region (principal)
CPT/HCPCS: 76000-TC-FY; J1100

== ENCOUNTER 2022-09-07 04:00 | Day surgery (SDC) | payer OTHER ==
[2022-08-30 12:43] VITALS: BMI 45.8
[2022-09-07] MEDS ORDERED: LIDOCAINE HCL/PF 1% SDV 5ML VIAL ONE (07:11)
[2022-09-07] MEDS ORDERED: BUPIVACAINE HCL/PF 0.75% 10 ML VIAL ONE (07:11)
[2022-09-07 07:18] VITALS: RESP 18
[2022-09-07] MEDS ORDERED: LIDOCAINE HCL 1%, 10 MG/ML (50 mL VIAL) NR ONE (08:17)
[2022-09-07] MEDS ORDERED: BUPIVACAINE HCL/PF 0.75% 10 ML VIAL NR ONE (08:18)
[2022-09-07 08:40] VITALS: TEMP 97.8
[2022-09-07 08:59] VITALS: BP 134/90; PULSE 71
== END 2022-09-07 08:50 | disposition home or self-care (01) ==
LOC: JASU-SURG 04:00
PROVIDERS: ATTEND Pain Medicine Pain Medicine
PROC: BR16YZZ Fluoroscopy of Lumbar Facet Joint(s) using Other Contrast (ICD-10-PCS; 2022-09-07)
PROC: 3E0T3BZ Introduction of Anesthetic Agent into Peripheral Nerves and Plexi, Percutaneous Approach (ICD-10-PCS; principal; 2022-09-07 08:00)
DX: M47.816 Spondylosis without myelopathy or radiculopathy, lumbar region (principal)
CPT/HCPCS: 76000-TC-FY

== ENCOUNTER 2022-12-28 03:56 | Day surgery (SDC) | payer OTHER ==
[2022-12-26 11:31] VITALS: BMI 46.3
[2022-12-28] MEDS ORDERED: LIDOCAINE HCL/PF 2% SDV 5ML VIAL ONE (07:09)
[2022-12-28] MEDS ORDERED: LIDOCAINE HCL/PF 1% SDV 5ML VIAL ONE (07:09)
[2022-12-28] MEDS ORDERED: BUPIVACAINE HCL/PF 0.75% 10 ML VIAL ONE (07:09)
[2022-12-28] MEDS ORDERED: DEXAMETHASONE SOD PHOSPHATE 10 MG/1 ML VIAL ONE (07:10)
[2022-12-28 08:09] VITALS: RESP 18
[2022-12-28] MEDS ORDERED: LIDOCAINE HCL/PF 2% SDV 5ML VIAL INF ONE (09:51)
[2022-12-28] MEDS ORDERED: LIDOCAINE HCL 1% PRESERVATIVE FREE - 30ML VIAL IJ ONE (09:51)
[2022-12-28] MEDS ORDERED: DEXAMETHASONE SOD PHOSPHATE 10 MG/1 ML VIAL IVPUSH ONE (09:52)
[2022-12-28] MEDS ORDERED: BUPIVACAINE HCL/PF 0.75% 10 ML VIAL NR ONE (09:52)
[2022-12-28 10:30] VITALS: BP 143/74; PULSE 73; TEMP 98.2
[2022-12-28] MEDS ORDERED: ACETAMINOPHEN 500 MG TABLET (FP) PO PRN (12:13)
== END 2022-12-28 10:22 | disposition home or self-care (01) ==
LOC: JASU-SURG 03:56
PROVIDERS: ATTEND Pain Medicine Pain Medicine
PROC: 015B3ZZ Destruction of Lumbar Nerve, Percutaneous Approach (ICD-10-PCS; principal; 2022-12-28 09:30)
DX: M47.816 Spondylosis without myelopathy or radiculopathy, lumbar region (principal)
CPT/HCPCS: 76000-TC-FY; J1100

== ENCOUNTER 2023-02-01 03:53 | Day surgery (SDC) | payer OTHER ==
[2023-01-25 13:04] VITALS: BMI 46.3
[~2023-02-01 03:53] MED LIST changes: +BUPIVACAINE HCL/PF 0.75% 10 ML VIAL NR ONE; +DEXAMETHASONE SOD PHOSPHATE 10 MG/1 ML VIAL IM ONE; -IOHEXOL 180 MG/1 ML ML IJ ONE; +LIDOCAINE HCL/PF 2% SDV 5ML VIAL INF ONE
[2023-02-01] MEDS ORDERED: LIDOCAINE HCL/PF 2% SDV 5ML VIAL INF ONE (10:56)
[2023-02-01] MEDS ORDERED: DEXAMETHASONE SOD PHOSPHATE 10 MG/1 ML VIAL IM ONE (10:56)
[2023-02-01] MEDS ORDERED: LIDOCAINE HCL 1% PRESERVATIVE FREE - 30ML VIAL IJ ONE (10:56)
[2023-02-01] MEDS ORDERED: BUPIVACAINE HCL/PF 0.75% 10 ML VIAL NR ONE (10:56)
[2023-02-01 11:48] VITALS: BP 134/81; PULSE 70; RESP 18; TEMP 98.9
[2023-02-01] MEDS ORDERED: ACETAMINOPHEN 500 MG TABLET (FP) PO PRN (13:42)
== END 2023-02-01 11:51 | disposition home or self-care (01) ==
LOC: JASU-SURG 03:53
PROVIDERS: ATTEND Pain Medicine Pain Medicine
PROC: 015B3ZZ Destruction of Lumbar Nerve, Percutaneous Approach (ICD-10-PCS; principal; 2023-02-01 10:30)
DX: M47.816 Spondylosis without myelopathy or radiculopathy, lumbar region (principal)
CPT/HCPCS: 76000-TC-FY; J1100

== ENCOUNTER 2023-08-06 05:06 | Day surgery (SDC) | payer OTHER ==
[2023-07-31 14:48] VITALS: BMI 45.1
[2023-08-06] MEDS ORDERED: LIDOCAINE HCL/PF 1% SDV 5ML VIAL ONE (07:15)
[2023-08-06] MEDS ORDERED: DEXAMETHASONE SOD PHOSPHATE 10 MG/1 ML VIAL ONE (07:15)
[2023-08-06] MEDS ORDERED: DEXAMETHASONE SOD PHOSPHATE 10 MG/1 ML VIAL IVPUSH ONE (10:05)
[2023-08-06] MEDS ORDERED: LIDOCAINE HCL 1% PRESERVATIVE FREE - 30ML VIAL IJ ONE (10:05)
[2023-08-06] MEDS ORDERED: IOHEXOL 180 MG/1 ML ML IJ ONE (10:05)
[2023-08-06] MEDS ORDERED: ACETAMINOPHEN 500 MG TABLET (FP) ONE (10:21)
[2023-08-06 12:15] VITALS: BP 128/83; PULSE 71; RESP 18; TEMP 97.8
[2023-08-06] MEDS ORDERED: ACETAMINOPHEN 500 MG TABLET (FP) PO PRN (17:44)
== END 2023-08-06 10:23 | disposition home or self-care (01) ==
LOC: JASU-SURG 05:06
PROVIDERS: ATTEND Pain Medicine Pain Medicine
PROC: 3E0R3BZ Introduction of Anesthetic Agent into Spinal Canal, Percutaneous Approach (ICD-10-PCS; 2023-08-06)
PROC: 3E0R33Z Introduction of Anti-inflammatory into Spinal Canal, Percutaneous Approach (ICD-10-PCS; principal; 2023-08-06 09:15)
DX: M48.061 Spinal stenosis, lumbar region without neurogenic claudication (principal); M54.16 Radiculopathy, lumbar region
CPT/HCPCS: 76000-TC-FY; J1100

== ENCOUNTER 2024-02-14 04:45 | Day surgery (SDC) | payer OTHER ==
[2024-02-05 10:43] VITALS: BMI 45.1
[2024-02-14] MEDS ORDERED: DEXAMETHASONE SOD PHOSPHATE 10 MG/1 ML VIAL ONE (07:17)
[2024-02-14] MEDS ORDERED: BUPIVACAINE HCL/PF 0.75% 10 ML VIAL ONE (07:17)
[2024-02-14] MEDS ORDERED: LIDOCAINE HCL/PF 1% SDV 5ML VIAL ONE (07:17)
[2024-02-14] MEDS ORDERED: LIDOCAINE HCL/PF 2% SDV 5ML VIAL ONE (07:19)
[2024-02-14] MEDS ORDERED: ACETAMINOPHEN 500 MG TABLET (FP) PO PRN (10:16)
[2024-02-14] MEDS: IOHEXOL 180 MG/1 ML ML IJ ONE (12:12)
[2024-02-14] MEDS ORDERED: LIDOCAINE HCL/PF 2% SDV 5ML VIAL INF ONE (12:12)
[2024-02-14] MEDS: LIDOCAINE HCL/PF 2% SDV 5ML VIAL INF ONE (12:12)
[2024-02-14] MEDS: DEXAMETHASONE SOD PHOSPHATE 10 MG/1 ML VIAL IVPUSH ONE (12:12)
[2024-02-14] MEDS ORDERED: LIDOCAINE HCL 1% PRESERVATIVE FREE - 30ML VIAL IJ ONE (12:12)
[2024-02-14] MEDS: LIDOCAINE HCL 1% PRESERVATIVE FREE - 30ML VIAL IJ ONE (12:12)
[2024-02-14] MEDS ORDERED: IOHEXOL 180 MG/1 ML ML IJ ONE (12:12)
[2024-02-14] MEDS ORDERED: DEXAMETHASONE SOD PHOSPHATE 10 MG/1 ML VIAL IVPUSH ONE (12:12)
[2024-02-14 12:45] VITALS: BP 139/81; PULSE 74; RESP 17; TEMP 98.7
== END 2024-02-14 12:45 | disposition home or self-care (01) ==
LOC: JASU-SURG 04:45
PROVIDERS: ATTEND Pain Medicine Pain Medicine
PROC: 015B3ZZ Destruction of Lumbar Nerve, Percutaneous Approach (ICD-10-PCS; principal; 2024-02-14 17:00)
DX: M47.816 Spondylosis without myelopathy or radiculopathy, lumbar region (principal)
CPT/HCPCS: 76000-TC-FY; J1100

== ENCOUNTER 2024-04-10 04:50 | Day surgery (SDC) | payer OTHER ==
[2024-04-09 07:57] VITALS: BMI 45.1
[2024-04-10] MEDS ORDERED: DEXAMETHASONE SOD PHOSPHATE 4 MG/1 ML VIAL ONE (07:18)
[2024-04-10] MEDS ORDERED: BUPIVACAINE HCL/PF 0.5% (5MG/ML) 10 ML VIAL ONE (07:18)
[2024-04-10] MEDS ORDERED: LIDOCAINE HCL/PF 1% SDV 5ML VIAL ONE (07:18)
[2024-04-10] MEDS ORDERED: DEXAMETHASONE SOD PHOSPHATE 10 MG/1 ML VIAL ONE (07:18)
[2024-04-10 10:47] VITALS: RESP 18
[2024-04-10] MEDS ORDERED: BUPIVACAINE HCL/PF 0.75% 10 ML VIAL ONE (11:19)
[2024-04-10] MEDS: LIDOCAINE 1% P/F 10 MG/ML VIAL PNB ONE ×2 (11:36)
[2024-04-10] MEDS: BUPIVACAINE 0.75% IN DEXTROSE/PF 2ML AMPULE NR ONE ×2 (11:36)
[2024-04-10] MEDS: LIDOCAINE HCL/PF 2% SDV 5ML VIAL PNB ONE ×2 (11:36)
[2024-04-10] MEDS ORDERED: ACETAMINOPHEN 500 MG TABLET (FP) ONE (11:59)
[2024-04-10] MEDS: ACETAMINOPHEN 500 MG TABLET (FP) PO ONE (12:00)
[2024-04-10 12:52] VITALS: BP 151/87; PULSE 72; TEMP 97.8
== END 2024-04-10 12:05 | disposition home or self-care (01) ==
LOC: JASU-SURG 04:50
PROVIDERS: ATTEND Pain Medicine Pain Medicine
PROC: 3E0T33Z Introduction of Anti-inflammatory into Peripheral Nerves and Plexi, Percutaneous Approach (ICD-10-PCS; 2024-04-10)
PROC: 3E0T3BZ Introduction of Anesthetic Agent into Peripheral Nerves and Plexi, Percutaneous Approach (ICD-10-PCS; principal; 2024-04-10 11:00)
DX: M47.816 Spondylosis without myelopathy or radiculopathy, lumbar region (principal)
CPT/HCPCS: 76000-TC-FY; J1100

== ENCOUNTER 2024-05-12 04:51 | Day surgery (SDC) | payer OTHER ==
[2024-05-06 09:44] VITALS: BMI 45.2
[2024-05-12] MEDS ORDERED: LIDOCAINE HCL 2% (20ML MULTI-DOSE VIAL) ONE (11:43)
[2024-05-12] MEDS ORDERED: ELECTROLYTE-148 SOLN 1,000 ML IV SCH (12:00)
[2024-05-12] MEDS ORDERED: MIDAZOLAM HCL 2 MG/2 ML SINGLE DOSE VIAL ONE (12:09)
[2024-05-12] MEDS ORDERED: LIDOCAINE HCL/PF 2% SDV 5ML VIAL ONE (12:09)
[2024-05-12] MEDS ORDERED: PROPOFOL 40 ML ONE (12:09)
[2024-05-12] MEDS ORDERED: SCOPOLAMINE HYDROBROMIDE 1 PATCH PATCH.TD72 ONE (12:16)
[2024-05-12] MEDS: ceFAZolin SODIUM 1 GM VIAL IVPB ONE (12:26)
[2024-05-12] MEDS ORDERED: ceFAZolin SODIUM 1 GM VIAL ONE (12:27)
[2024-05-12] MEDS ORDERED: DEXAMETHASONE SOD PHOSPHATE 4 MG/1 ML VIAL ONE (12:27)
[2024-05-12] MEDS: LIDOCAINE HCL 2% (50ML VIAL) NR ONE ×2 (12:34)
[2024-05-12] MEDS ORDERED: KETOROLAC TROMETHAMINE 30 MG/1 ML VIAL ONE (12:47)
[2024-05-12] MEDS ORDERED: ONDANSETRON 4 MG/2 ML VIAL ONE (12:47)
[2024-05-12] MEDS ORDERED: PROMETHAZINE HCL 25 MG/1 ML VIAL IVPB PRN (13:11)
[2024-05-12] MEDS ORDERED: oxyCODONE HCL 5 MG TABLET PO PRN ×2 (13:11)
[2024-05-12] MEDS ORDERED: ONDANSETRON 4 MG/2 ML VIAL IVPUSH PRN (13:11)
[2024-05-12] MEDS: ACETAMINOPHEN 1000 MG/100 ML BAG IVPB ONE (13:22)
[2024-05-12] MEDS: LACTATED RINGERS SOLUTION 1,000 ML IV SCH (13:23)
[2024-05-12 14:58] VITALS: RESP 20; TEMP 97.8
[2024-05-12 15:01] VITALS: BP 128/70; PULSE 70
== END 2024-05-12 15:00 | disposition home or self-care (01) ==
LOC: JASU-SURG 04:51
PROVIDERS: ATTEND Urology
PROC: 0VTTXZZ Resection of Prepuce, External Approach (ICD-10-PCS; principal; 2024-05-12 11:45)
DX: N47.1 Phimosis (principal)
CPT/HCPCS: 88304-TC; 94760; J0131

== ENCOUNTER 2024-09-14 04:44 | Day surgery (SDC) | payer OTHER ==
[2024-09-11 13:42] VITALS: BMI 44.7
[2024-09-14] MEDS ORDERED: KETAMINE HCL 200 MG/20 ML VIAL ONE (07:49)
[2024-09-14] MEDS ORDERED: MIDAZOLAM HCL 2 MG/2 ML SINGLE DOSE VIAL ONE ×2 (07:50→08:15)
[2024-09-14 09:55] VITALS: BP 135/74; PULSE 61; TEMP 98.3
[2024-09-14 09:56] VITALS: RESP 17
== END 2024-09-14 09:52 | disposition home or self-care (01) ==
LOC: JASU-ENDO 04:44
PROVIDERS: ATTEND Internal Medicine Gastroenterology
PROC: 0DB78ZX Excision of Stomach, Pylorus, Via Natural or Artificial Opening Endoscopic, Diagnostic (ICD-10-PCS; 2024-09-14)
PROC: 0DB68ZX Excision of Stomach, Via Natural or Artificial Opening Endoscopic, Diagnostic (ICD-10-PCS; 2024-09-14)
PROC: 0DB58ZX Excision of Esophagus, Via Natural or Artificial Opening Endoscopic, Diagnostic (ICD-10-PCS; 2024-09-14)
PROC: 0DB48ZX Excision of Esophagogastric Junction, Via Natural or Artificial Opening Endoscopic, Diagnostic (ICD-10-PCS; 2024-09-14)
PROC: 0DB98ZX Excision of Duodenum, Via Natural or Artificial Opening Endoscopic, Diagnostic (ICD-10-PCS; principal; 2024-09-14 08:00)
DX: K29.50 Unspecified chronic gastritis without bleeding (principal); K21.00 Gastro-esophageal reflux disease with esophagitis, without bleeding; K20.90 Esophagitis, unspecified without bleeding
CPT/HCPCS: 88305-TC; 88342-TC